=== PATIENT | female | born 1995 | race Caucasian/White ===

== ENCOUNTER 2019-03-13 03:37 | Emergency (ER) | payer BC, OTHER ==
[~2019-03-13] VITALS: Ht 165.1 cm; Wt 50.0 kg
--- NOTE | 2019-03-13 04:33 | NUR ---
ASSUMING CARE OF PT. AT THIS TIME. REPORT FROM [facility]. PT. AWAITING X-RAY. FAMILY AT FOR SUPPORT. CALL LIGHT IN REACH.
[2019-03-13] MEDS ORDERED: HYDROcodone/APAP 5/325 TABLET ONE (05:13)
[2019-03-13] MEDS ORDERED: HYDROcodone/APAP 5/325 TABLET PO ONE (05:30)
[2019-03-13 05:54] VITALS: BP 118/72
== END 2019-03-13 05:57 | disposition home or self-care (01) ==
LOC: ED 05:33
DX: S76.012A Strain of muscle, fascia and tendon of left hip, initial encounter (principal); X58.XXXA Exposure to other specified factors, initial encounter; Y93.89 Activity, other specified; Y92.89 Other specified places as the place of occurrence of the external cause; Y99.8 Other external cause status
CPT/HCPCS: 99283